=== PATIENT | male | born 1945 | race Caucasian/White ===

== ENCOUNTER 2018-07-12 12:07 | Emergency (ER) | payer OTHER, MEDICARE, BC ==
[2018-07-12 12:40] VITALS: TEMP 97.9
[2018-07-12] MEDS ORDERED: ESMOLOL HCL 100 MG/10 ML IV ONE (13:16)
[2018-07-12] MEDS ORDERED: SODIUM CHLORIDE 0.9% FLUSH 10 ML SOL IV PRN (13:20)
[2018-07-12 13:22] LABS: BASOPHILS % (AUTO) 1 % (0-3); EOSINOPHILS % (AUTO) 4 % (0-9); HEMATOCRIT 36 % (39-53); HEMOGLOBIN 11.6 gm/dl (13.5-17.7); LYMPHOCYTES % (AUTO) 32.3 % (10-50); MEAN CORPUSCULAR HGB CONC 32.5 gm/dl (32.0-36.0); MEAN CORPUSCULAR VOLUME 86 fL (80-100); MONOCYTES % (AUTO) 15.5 % (0-12); NEUTROPHILS % (AUTO) 47.6 % (37-80)
[2018-07-12 13:29] LABS: INR 1.03 (0.86-1.12)
[2018-07-12] MEDS ORDERED: HYDRALAZINE HYDROCHLORIDE 20 MG/ML SOL IV ONE (13:29)
[2018-07-12] MEDS ORDERED: HYDRALAZINE HYDROCHLORIDE 20 MG/ML SOL ONE (13:29)
[2018-07-12 13:41] LABS: BLOOD UREA NITROGEN 10 mg/dl (7-18); CALCIUM 8.8 mg/dl (8.5-10.1); CARBON DIOXIDE 27.5 mEq/L (21-32); CHLORIDE 105 mMol/L (98-107); CREATININE 0.88 mg/dl (0.80-1.30); GLUCOSE 100 mg/dl (74-106); POTASSIUM 3.8 mMol/L (3.5-5.1); SODIUM 141 mMol/L (136-145); TROP I < 0.017 ng/ml (0.000-0.056)
[2018-07-12] MEDS ORDERED: ESMOLOL HCL 100 MG/10 ML IV PRN (13:45)
[2018-07-12] MEDS ORDERED: ONDANSETRON HCL 4 MG/2 ML SOL ONE (14:06)
[2018-07-12] MEDS ORDERED: ONDANSETRON HCL 4 MG/2 ML SOL IV ONE (14:08)
[2018-07-12 14:32] VITALS: RESP 18
[2018-07-12 14:33] VITALS: BP 126/80; PULSE 56; O2SAT 98
== END 2018-07-12 14:15 | disposition short-term general hospital (02) | DRG 301 ==
LOC: ED 12:07
DX: I71.3 Abdominal aortic aneurysm, ruptured (principal); I10 Essential (primary) hypertension
CPT/HCPCS: 71045; 80048; 84484; 85025; 85610; 93005; 96374; 96375; 99291; J0360; J2405; J3490